=== PATIENT | male | born 1940 | race Caucasian/White ===

== ENCOUNTER 2021-10-02 14:35 | Outpatient (CLI) | payer OTHER | END 2021-10-02 14:36 | disposition home or self-care (01) | LOC: CSHLAB 14:35 | PROVIDERS: ATTEND Internal Medicine | DX: Z20.822 Contact with and (suspected) exposure to COVID-19 (principal) | CPT/HCPCS: U0003; U0005 ==

== ENCOUNTER 2021-10-06 13:05 | Outpatient (CLI) | payer OTHER | END 2021-10-06 13:06 | disposition home or self-care (01) | LOC: CSHCP 13:05 | PROVIDERS: ATTEND Internal Medicine | DX: R05.8 Other specified cough (principal); J44.9 Chronic obstructive pulmonary disease, unspecified | CPT/HCPCS: 94060; 94726; 94729; 94760 ==

== ENCOUNTER 2023-05-31 19:50 | Inpatient (IN) | payer OTHER, MEDICARE ==
[2023-05-31] MEDS ORDERED: Mineral Oil ENEMA ONE (20:11)
[2023-05-31 22:18] LABS: #Monocytes 0.3 10x3/uL (0.0-1.1); #Neutrophils 7.6 10x3/uL (1.5-8.4); %Basophils 0.3 % (0.0-2.0); %Eosinophils 0.3 % (0.0-6.0); %Lymphocytes 8.4 % (18.0-47.0); %Monocytes 3.6 % (0.0-10.0); %Neutrophils 87.1 % (40.0-75.0); Hematocrit 35.3 % (38.8-50.0); Hemoglobin 12.2 g/dL (13.5-17.5); Mean Corpuscular HGB CONC 34.6 g/dL (32.0-36.0); Mean Corpuscular Hemoglobin 30.1 pg (27.0-33.0); Mean Corpuscular Volume 87.2 fl (81.2-95.1); Mean Platelet Volume 8.6 fl (7.4-10.4); Platelet Count 327 10x3/uL (150-450); RBC Distribution Width 15.1 % (11.5-14.5); Red Blood Cell (RBC) Count 4.05 10x6/uL (4.32-5.72); White Blood Cell (WBC) Count 8.8 10x3/uL (3.5-10.5)
[2023-05-31 22:23] LABS: ALT (SGPT) Less than 7 U/L (8-55); AST (SGOT) 26 U/L (5-34); Albumin 3.6 g/dL (3.4-4.8); Alkaline Phosphatase 57 U/L (40-110); Anion Gap 16 mmol/L (10-20); BUN (Urea Nitrogen) 19 mg/dL (8.4-25.7); Bilirubin, Total 0.5 mg/dL (0.2-1.2); Calc. Creatinine Clearance 0 mL/min (70-130); Calcium 8.7 mg/dL (7.8-10.44); Carbon Dioxide 23 mmol/L (23-31); Chloride 98 mmol/L (98-107); Estimated GFR 96; Globulin 2.8 g/dL (2.4-3.5); Glucose 88 mg/dL (83-110); Lipase 6 U/L (8-78); Potassium 3.7 mmol/L (3.5-5.1); Protein, Total 6.4 g/dL (5.8-8.1); Sodium 133 mmol/L (136-145)
[2023-05-31] MEDS ORDERED: HYDROcodone/Acetaminophen 5/325 mg Tablet ONE (23:45)
[2023-06-01 05:07] VITALS: BMI 18.8
[2023-06-01] MEDS ORDERED: Bisacodyl 10 MG SUPP PR PRN (05:52)
[2023-06-01] MEDS ORDERED: Senokot S 8.6-50 MG TAB PO PRN (05:52)
[2023-06-01] MEDS: Sodium Chloride 0.9% 1,000 ML IV SCH (06:45)
[2023-06-01] MEDS ORDERED: FLU VACC QS2023(65UP)/MF59C/PF 60 MCG/0.5 ML SYRINGE IM ONE (07:45)
[2023-06-01] MEDS ORDERED: Acetaminophen 325 MG TAB PO PRN (09:51)
[2023-06-01] MEDS: Enoxaparin 30 MG (0.3 mL) SYRINGE SC SCH (10:02)
[2023-06-01] MEDS: Acetaminophen 500 MG TAB PO SCH (10:54)
[2023-06-01] MEDS: D5 1/2 NS w/10 mEq KCl 1,000 ML/1,000 ML BAG IV SCH ×2 (10:55→15:02)
[2023-06-01] MEDS ORDERED: Electrolyte Replacement Protocol 1 EACH FS SCH (11:45)
[2023-06-01 12:46] LABS: Magnesium 1.5 mg/dL (1.6-2.6); Phosphorus 2.7 mg/dL (2.3-4.7)
[2023-06-01] MEDS: GoLYTELY 4,000 ml Bottle PO SCH (15:02)
[2023-06-01] MEDS: Magnesium 2 GM/50 ML(in water) 2 GM in Premix 1 BAG IVPB SCH (17:54)
[2023-06-01] MEDS: HYDROcodone/Acetaminophen 5/325 mg Tablet PO PRN (21:15)
[2023-06-02 05:53] LABS: #Monocytes 0.4 10x3/uL (0.0-1.1); #Neutrophils 7.2 10x3/uL (1.5-8.4); %Basophils 0.2 % (0.0-2.0); %Eosinophils 0.5 % (0.0-6.0); %Lymphocytes 11.3 % (18.0-47.0); %Monocytes 5.1 % (0.0-10.0); %Neutrophils 82.4 % (40.0-75.0); Hematocrit 31.3 % (38.8-50.0); Hemoglobin 11.3 g/dL (13.5-17.5); Mean Corpuscular HGB CONC 36.1 g/dL (32.0-36.0); Mean Corpuscular Volume 85.8 fl (81.2-95.1); Platelet Count 304 10x3/uL (150-450); Red Blood Cell (RBC) Count 3.65 10x6/uL (4.32-5.72); White Blood Cell (WBC) Count 8.7 10x3/uL (3.5-10.5)
[2023-06-02 06:08] LABS: Anion Gap 15 mmol/L (10-20); Calc. Creatinine Clearance 84 mL/min (70-130); Calcium 8.3 mg/dL (7.8-10.44); Carbon Dioxide 22 mmol/L (23-31); Chloride 100 mmol/L (98-107); Estimated GFR 101; Glucose 111 mg/dL (83-110); Potassium 3.8 mmol/L (3.5-5.1); Sodium 133 mmol/L (136-145)
[2023-06-02 06:22] LABS: Phosphorus 2.3 mg/dL (2.3-4.7)
[2023-06-02 06:54] LABS: BUN (Urea Nitrogen) 15 mg/dL (8.4-25.7)
[2023-06-02] MEDS: Carbidopa/Levodopa 25-100 mg Tablet PO SCH (15:00)
[2023-06-02] MEDS ORDERED: Preparation H Ointment 28 GM TUBE TOP PRN (15:20)
[2023-06-02] MEDS ORDERED: Preparation H Ointment 57 gram tube TOP PRN (15:58)
[2023-06-02] MEDS ORDERED: GoLYTELY 4,000 ml Bottle PO SCH (17:30)
[2023-06-02] MEDS: GoLYTELY 4,000 ml Bottle PO SCH (17:45)
[2023-06-02] MEDS: Cephalexin 500 MG CAP PO SCH (21:54)
[2023-06-03 05:27] LABS: Magnesium 1.6 mg/dL (1.6-2.6); Phosphorus 2.3 mg/dL (2.3-4.7)
[2023-06-03] MEDS: Levothyroxine Sodium 50 MCG TAB PO SCH (07:05)
[2023-06-03] MEDS: Magnesium 2 GM/50 ML(in water) 2 GM in Premix 1 BAG IVPB SCH (08:32)
[2023-06-03] MEDS: rOPINIRole HCl 1 MG TAB PO SCH (08:32)
[2023-06-03] MEDS: Tamsulosin HCl 0.4 MG CAP PO SCH (08:32)
[2023-06-03] MEDS: DULoxetine 30 MG CAP PO SCH (08:32)
[2023-06-03] MEDS ORDERED: PROPOFOL 0 ML ONE (14:27)
[2023-06-03] MEDS ORDERED: Midazolam HCl 2 mg/2 ml Vial ONE (14:27)
[2023-06-03] MEDS ORDERED: Lidocaine 1% PF 5 ML VIAL ONE (14:30)
[2023-06-03] MEDS ORDERED: PROPOFOL 20 ML ONE (14:37)
[2023-06-03] MEDS ORDERED: PHENYLEPHRINE-NS 100 MCG/ML 10 ML SYRINGE ONE (14:44)
[2023-06-03] MEDS: Fluconazole 100 MG TAB PO SCH (17:59)
[2023-06-03] MEDS: Docusate 100 MG CAP PO SCH (21:51)
[2023-06-03] MEDS: Polyethylene Glycol 3350 17 GM Packet PO SCH (21:53)
[2023-06-04 06:25] LABS: #Eosinphils 0.3 10x3/uL (0.0-0.5); #Monocytes 0.3 10x3/uL (0.0-1.1); #Neutrophils 3.5 10x3/uL (1.5-8.4); %Basophils 0.5 % (0.0-2.0); %Eosinophils 4.9 % (0.0-6.0); %Lymphocytes 24.6 % (18.0-47.0); %Neutrophils 63.5 % (40.0-75.0); Hematocrit 31.9 % (38.8-50.0); Hemoglobin 11.1 g/dL (13.5-17.5); Mean Corpuscular HGB CONC 34.8 g/dL (32.0-36.0); Mean Corpuscular Hemoglobin 30.2 pg (27.0-33.0); Mean Corpuscular Volume 86.9 fl (81.2-95.1); Platelet Count 283 10x3/uL (150-450); RBC Distribution Width 15.1 % (11.5-14.5); Red Blood Cell (RBC) Count 3.67 10x6/uL (4.32-5.72); White Blood Cell (WBC) Count 5.5 10x3/uL (3.5-10.5)
[2023-06-04 06:36] LABS: Anion Gap 14 mmol/L (10-20); BUN (Urea Nitrogen) 8 mg/dL (8.4-25.7); Calc. Creatinine Clearance 86 mL/min (70-130); Calcium 8.1 mg/dL (7.8-10.44); Carbon Dioxide 25 mmol/L (23-31); Chloride 98 mmol/L (98-107); Estimated GFR 101; Glucose 83 mg/dL (83-110); Potassium 3.3 mmol/L (3.5-5.1); Sodium 134 mmol/L (136-145)
[2023-06-04] MEDS: Potassium Chloride 20 MEQ TAB PO SCH (09:09)
[2023-06-04] MEDS: Senokot S 8.6-50 MG TAB PO SCH (21:02)
[2023-06-04] MEDS: Acetaminophen/Codeine 30-300mg Tablet PO PRN (21:14)
[2023-06-04] MEDS: Fluticasone Propionate Nasal Spray 16 gm Bottle NASAL SCH (22:10)
[2023-06-05 06:04] LABS: Magnesium 1.7 mg/dL (1.6-2.6)
[2023-06-05] MEDS: Magnesium 2 GM/50 ML(in water) 2 GM in Premix 1 BAG IVPB SCH (09:15)
[2023-06-05] MEDS: HYDROcodone/Acetaminophen 5/325 mg Tablet PO PRN (18:46)
[2023-06-06 05:53] LABS: Magnesium 1.5 mg/dL (1.6-2.6)
[2023-06-06] MEDS: Multivitamin W/ Minerals 1 TAB PO SCH (09:35)
[2023-06-06] MEDS: Magnesium 2 GM/50 ML(in water) 2 GM in Premix 1 BAG IVPB SCH (09:36)
[2023-06-06 17:45] VITALS: BP 122/80; TEMP 98.1
== END 2023-06-06 18:00 | DRG 389 ==
LOC: CSHERS 19:50 → CSHTELE 06-01 04:42 → INTOOBSV 06-01 04:42 → OBSVTOIN 06-01 16:47
PROVIDERS: ADMIT Hospitalist; ATTEND Family Medicine
PROC: 0DBP8ZX Excision of Rectum, Via Natural or Artificial Opening Endoscopic, Diagnostic (ICD-10-PCS; principal; 2023-06-05)
PROC: 0DB38ZX Excision of Lower Esophagus, Via Natural or Artificial Opening Endoscopic, Diagnostic (ICD-10-PCS; 2023-06-05)
PROC: 0DB28ZX Excision of Middle Esophagus, Via Natural or Artificial Opening Endoscopic, Diagnostic (ICD-10-PCS; 2023-06-05)
DX: K56.41 Fecal impaction (principal); B37.81 Candidal esophagitis; E44.0 Moderate protein-calorie malnutrition; R64 Cachexia; Z68.1 Body mass index [BMI] 19.9 or less, adult; K52.89 Other specified noninfective gastroenteritis and colitis; I25.10 Atherosclerotic heart disease of native coronary artery without angina pectoris; J44.9 Chronic obstructive pulmonary disease, unspecified; E78.5 Hyperlipidemia, unspecified; G20.A1 Parkinson's disease without dyskinesia, without mention of fluctuations; K21.9 Gastro-esophageal reflux disease without esophagitis; R29.6 Repeated falls; G47.33 Obstructive sleep apnea (adult) (pediatric); R13.10 Dysphagia, unspecified; K86.9 Disease of pancreas, unspecified; L03.031 Cellulitis of right toe; G89.29 Other chronic pain; Z85.46 Personal history of malignant neoplasm of prostate; Z91.81 History of falling; Z95.1 Presence of aortocoronary bypass graft; Z98.1 Arthrodesis status; Z87.891 Personal history of nicotine dependence; Z79.891 Long term (current) use of opiate analgesic; Z79.899 Other long term (current) drug therapy
CPT/HCPCS: 36415; 36416; 71045; 74176; 80048; 80053; 81001; 82378; 83690; 83735; 84100; 85025; 86301; 88305; 93005; 96374; 97139; J1650; J2250; J2704; J3475; J3480; J7050

== ENCOUNTER 2023-07-05 00:54 | Emergency (ER) | payer OTHER, MEDICARE ==
[2023-07-05 01:32] LABS: Bilirubin Neg (Negative); Blood, Urine Negative (Negative); Clarity Clear (Clear); Glucose, Urine (Dipstick) Normal (Negative); Ketone, Urine Negative (Negative); Leukocyte Negative (Negative); Nitrite Negative (Negative); Protein, Urine (Dipstick) Negative (Neg-Trace); Specific Gravity, Urine 1.015 (1.005-1.030); Urobilinogen Normal mg/dL (Less than 2)
[2023-07-05 01:34] LABS: #Eosinphils 0.1 10x3/uL (0.0-0.5); #Monocytes 0.3 10x3/uL (0.0-1.1); #Neutrophils 3.9 10x3/uL (1.5-8.4); %Basophils 0.6 % (0.0-2.0); %Lymphocytes 15.4 % (18.0-47.0); %Monocytes 6.5 % (0.0-10.0); %Neutrophils 76.1 % (40.0-75.0); Hematocrit 29.9 % (38.8-50.0); Mean Corpuscular HGB CONC 33.4 g/dL (32.0-36.0); Mean Corpuscular Hemoglobin 31.3 pg (27.0-33.0); Mean Corpuscular Volume 93.4 fl (81.2-95.1); Mean Platelet Volume 8.5 fl (7.4-10.4); Platelet Count 302 10x3/uL (150-450); RBC Distribution Width 16.4 % (11.5-14.5); White Blood Cell (WBC) Count 5.1 10x3/uL (3.5-10.5)
[2023-07-05 01:46] LABS: Bacteria/HPF None Seen HPF (None Seen); CAUTI Indications for Culture Dysuria,urgency,freq; RBC/HPF 0-3 HPF (0-3); Squamous Epithelial 0-3 HPF (0-3); WBC/HPF 0-3 HPF (0-3)
[2023-07-05 01:47] LABS: Urine Culture Reflex No No
[2023-07-05 01:51] LABS: ALT (SGPT) 16 U/L (8-55); AST (SGOT) 15 U/L (5-34); Alkaline Phosphatase 58 U/L (40-110); Anion Gap 12 mmol/L (10-20); BUN (Urea Nitrogen) 8 mg/dL (8.4-25.7); Bilirubin, Total 0.3 mg/dL (0.2-1.2); Calc. Creatinine Clearance 0 mL/min (70-130); Calcium 8.2 mg/dL (7.8-10.44); Carbon Dioxide 23 mmol/L (23-31); Chloride 103 mmol/L (98-107); Estimated GFR 95; Globulin 2.3 g/dL (2.4-3.5); Glucose 125 mg/dL (83-110); Protein, Total 5.3 g/dL (5.8-8.1); Sodium 134 mmol/L (136-145)
[2023-07-05 01:52] LABS: CRP (Inflammatory) 1.1 mg/dL (= or < 0.5)
[2023-07-05] MEDS ORDERED: Acetaminophen/Codeine 30-300mg Tablet ONE ×2 (02:06→07:43)
== END 2023-07-05 09:23 | disposition home or self-care (01) ==
LOC: CSHERS 00:54
DX: R64 Cachexia (principal); R53.1 Weakness; J44.9 Chronic obstructive pulmonary disease, unspecified; E11.9 Type 2 diabetes mellitus without complications
CPT/HCPCS: 80053; 81001; 83605; 83690; 85025; 86140; 99285